=== PATIENT | male | born 2000 | race African-American/Black ===

== ENCOUNTER 2024-07-15 15:03 | Emergency (ER) | payer SELFPAY ==
[~2024-07-15] VITALS: Ht 180.3 cm; Wt 50.0 kg
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
[2024-07-15] MEDS ORDERED: IBUP-1454 PO (17:26)
[2024-07-15] MEDS ORDERED: CYCL-837 PO (17:26)
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
[2024-07-15 18:11] VITALS: BP 106/66; PULSE 80; RESP 20; TEMP 98.7; O2SAT 100
== END 2024-07-15 18:13 | disposition home or self-care (01) ==
LOC: ER 15:03
DX: M79.18 Myalgia, other site (principal); M54.16 Radiculopathy, lumbar region
CPT/HCPCS: 71250; 74176